=== PATIENT | male | born 1970 | race African-American/Black ===

== ENCOUNTER 2017-03-30 12:18 | Emergency (ER) | payer OTHER ==
[~2017-03-30] VITALS: Ht 182.9 cm; Wt 95.3 kg
[2017-03-30] MEDS ORDERED: NKM (12:35)
[2017-03-30 13:42] VITALS: BP 149/98
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
[2017-03-30] MEDS ORDERED: ROBAXIN-750750 MG PO (14:29)
[2017-03-30] MEDS ORDERED: IBUPROFEN600 MG ORAL (14:29)
[2017-03-30 14:43] VITALS: BP 149/98
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
== END 2017-03-30 14:43 | disposition home or self-care (01) ==
LOC: EMR 13:05
DX: E04.1 Nontoxic single thyroid nodule (principal); T14.8 Other injury of unspecified body region; V49.9XXA Car occupant (driver) (passenger) injured in unspecified traffic accident, initial encounter; Y93.9 Activity, unspecified; Y92.9 Unspecified place or not applicable; M54.2 Cervicalgia; H53.9 Unspecified visual disturbance
CPT/HCPCS: 70450; 72125; 99284